=== PATIENT | female | born 1940 | race Asian ===

== ENCOUNTER 2019-10-30 09:56 | Emergency (ER) | payer MEDICARE, MEDICAID, SELFPAY ==
[2019-10-30] VITALS (58 sets, daily range): BP systolic 53–151; BP diastolic 34–88; PULSE 87–137; RESP 19–53; TEMP 37.4–38; O2SAT 71–100
--- NOTE | 2019-10-30 10:07 | DI.RAD.S_ITS ---
PROCEDURE: XR CHEST 1V INDICATIONS: shortness of breath TECHNIQUE: One view of the chest was acquired. COMPARISON: None. FINDINGS: Surgical changes and devices: None. Lungs and pleura: Low lung volumes are noted. This causes a crowded appearance to the lung markings and limits evaluation. Patchy interstitial infiltrates are seen, which are most prominent involving the right mid lung and right lower lung. No pneumothorax or large pleural effusion can be seen. Mediastinum: The cardiac contours are within normal limits. The aorta demonstrates calcification and tortuosity. Bones and chest wall: Age-appropriate bony degenerative changes are seen. No suspicious bony lesions. Overlying soft tissues appear unremarkable. IMPRESSION: Low lung volumes with patchy interstitial infiltrates. Differential diagnosis includes early infiltrate and atelectasis. As clinically appropriate, a short-term followup chest series (with PA and lateral views) performed in deep inspiration is suggested for further evaluation. Dictated by: Cedric Blas M.D. on 10/30/2019 at 10:19 Approved by: Cedric Blas M.D. on 10/30/2019 at 10:21
--- NOTE | 2019-10-30 10:26 | ED.SOB ---
HPI - SOB/Dyspnea <Tristen Cee MD - Last Filed: 11/02/19 07:44> General Chief Complaint: Shortness of Breath/Dyspnea Stated Complaint: fever/cough x3 days Time Seen by Provider: 10/30/19 10:03 History of Present Illness HPI Narrative: CC: Fever, dry unproductive cough for 3 days with shortness of breath HPI: The patient is an 79-year-old female who presents to the emergency department along with her who was also sick with a dry cough for the last 3 days prior to admission associated with fever chills and sweats. She denies any significant chest pain on coughing or deep breathing. She has not had a headache or sore throat. She denies any belly pain chest pain nausea vomiting diarrhea change in bowel habits. The patient has a history of diabetes mellitus and hypertension but no history of congestive heart failure myocardial infarction or COPD. The patient has never smoked cigarettes drinks alcohol occasionally and does not use any drugs including marijuana. She has not had any sore throat nasal congestion sinus congestion. She has not had any significant back pain no belly pain and no urinary symptoms. The patient does not speak Polish and the history is provided by the patient's daughter. On admission the patient was hypoxic with oxygen saturation of 72 which improved to 95% when she was placed on a non-rebreather. She was eventually changed to high-flow nasal cannula. Related Data Allergies Allergy/AdvReac Type Severity Reaction Status Date / Time No Known Drug Allergies Allergy Verified 10/30/19 10:41 Review of Systems <Tristen Cee MD - Last Filed: 11/02/19 07:44> Review of Systems Narrative: The patient's review of systems were all negative except for those mentioned in the history of present illness. Exam <Tristen Cee MD - Last Filed: 11/02/19 07:44> Narrative Exam Narrative: PHYSICAL EXAM: CONSTITUTIONAL: Awake, Alert, Cooperative who is very thin pale appears very quiet and toxic with tachypnea.. HEAD: AT/NC EENT: PERRL, FROM of eyes, no discharge, NOSE:No epistaxis or nasal drainage MOUTH:Oral mucosa is moist and pink, posterior pharynx is without erythema or exudate. NECK: Supple, no obvious JVD, Trachea is midline without stridor, no palpable LN. SPINE: Palpation of the cervical, Thoracic, Lumbar or Sacral spine reveals no gross deformity or tenderness. No CVA tenderness. THORAX: No deformity, retractions, chest wall tenderness. Patient is tachypneic. LUNGS: The patient has markedly decreased breath sounds bilaterally with crackles in both bases posteriorly bilaterally. HEART: The patient has a grade 2/6 systolic murmur along the left sternal border with normal heart tones regular rhythm and tachycardic ABDOMEN: Soft, non-tender, normal bowel sounds without guarding, rebound, rigidity or palpable mass. EXTREMITIES: No edema, deformity, tenderness or cyanosis. SKIN: Pale, No rash, bruising, petechiae or purpura. NEURO: Awake, alert, cranial nerves II-XII are symmetrical , moves all 4 extremities Initial Vital Signs Initial Vital Signs: Vital Signs Temperature 99.3 F 10/30/19 10:41 Pulse Rate 104 H 10/30/19 10:41 Blood Pressure 117/62 10/30/19 10:41 Pulse Oximetry 71 L 10/30/19 10:41 <Jose Alejandro Watts DO - Last Filed: 10/31/19 02:35> Initial Vital Signs Initial Vital Signs: Vital Signs Temperature 99.3 F 10/30/19 10:41 Pulse Rate 104 H 10/30/19 10:41 Blood Pressure 117/62 10/30/19 10:41 Pulse Oximetry 71 L 10/30/19 10:41 Course <Tristen Cee MD - Last Filed: 11/02/19 07:44> Course Course Narrative: 1410: The patient returned from CT scan and remained hypoxic. She was rapid sequence intubated with 10 mg of etomidate followed by 100 mg of succinylcholine followed by intubation without difficulty and good color change on capnometer tree with a 7.5endotracheal tube with 23-24 lip line. Symmetrical breath sounds. A portable chest x-ray will be obtained to check tube placement 1425: I discussed the patient with Dr. Acosta hospitalist on-call who states that the patient is too sick for the ICU here and needs to be transferred to the care of an maintenance controller. Call has been placed in to [facility] to accept transfer. 1436: The patient was bucking the tube despite administering propofol drip and titrating for affect and her blood pressure dropped. The patient was administered 100 mg of fentanyl followed by the initiation of a Versed drip for deep sedation. 1545: The patient's blood pressure dropped and a left subclavian triple lumen central line was started using the Seldinger technique. 2 attempt were necessary with good blood return on the second attempt. Good blood return from all 3 lumens. The catheter was secured in placed and a placement chest x-ray will be ordered. [facility] has not called back and will call [facility] in [place]. The patient has been started on Levophed to support her blood pressure. I discussed the patient's critical grave situation with her sister as well as 1 of her sons. They were made aware of her grave situation and wanted everything done. 1625 the patient's portable chest x-ray did not reveal any evidence of a pneumothorax and a left subclavian catheter appears to be in good position. The patient's chest x-ray looks fluffy as though she may have congestive heart failure and we may have fluid overloaded the patient to resuscitate her blood pressure. And treat her for sepsis. We will administer 1 dose of Lasix 40 mg IV to see if this helps her hypoxia. The patient's has been admitted to the hospitalist service at [facility] in [place], we are waiting for the intensivists Dr. Christiano Gonzalez to call back to accept this patient. 1637: The patient's repeat blood gases on the blood gas report revealed a pH of 7.375 a pCO2 of 32.2 a PO2 of 94 and HC03 of 18.9 a total CO2 of 20 an O2 saturation of 97% on 12 of PEEP. Her sodium was 133 potassium 3.7 hematocrit 25% hemoglobin 8.5. 1653: I discussed the patient with Dr. Christiano Gonzalez at [facility] in [place], he is willing to accept the patient except that if the family wants full court press and everything being done for the patient she may need to be transferred to the [facility] where she can receive ECMO if necessary. If the family is unwilling for her to go to the [facility] and to receive ECMO and understands that she is gravely ill and even with intensive care therapy may end up dying he is willing to accept the patient in transfer. 1659: I tried calling the patient's son Jaret Mcintyre who was not available on his phone and I left him a message that his mother is critically and gravely ill and that I need to discuss a few issues with him in ordered the determine the next step in her care. He was advised that she will need to be transferred to a critical care unit. His phone number is: [phone]. 1710: I explained the critical situation in the gravity of this situation to the patient's son Jaret. He requested that I call his daughter who was taking care of the patient, the patient's granddaughter Timothy Mcintyre at [phone]. 1732 I discussed the patient with her granddaughter iTmothy who became very upset and emotional over the information that I provided. She will discuss the situation with her father and family and decide whether or not they want to transfer the patient to for critical care or be transferred to the intensive care unit at [facility] in [place]. They will call back. 180: I called Timothy Mcintyre the patient's granddaughter who discussed the situation with her parents. They advised to transfer her grandfather to [facility] as previously arranged and to try entrance further grandmother of to If possible they would like them both transferred to . [facility] at the same time. 1844: I discussed the patient and gave report to Maryam the technical training coordinator for . She is working she is working on having the patient transferred to the [facility], ICU. She was informed that the patient may be checked out to Dr. Watts. 1930: I discussed the patient with the [facility] ICU Doctor, Dr. Major who states that the patient will not be admitted to the [facility] ICU unless she has confirmed Covid swab. The patient sounds clinically like she has [place] at but will need to be admitted to the regular intensive care unit placed in isolation until the Covid test results. [facility] will [facility]. 1956: Spoke with Dr. Reginaldo Cerrato the medicine ICU maintenance controller has accepted the patient being transferred. The y will call back with a room. Orders Ordered: Discontinued Medications Etomidate (Amidate) 10 mg IV NOW ONE Stop: 10/30/19 13:39 Last Admin: 10/30/19 14:05 Dose: 10 mg Documented by: SCANAPO Fentanyl (Sublimaze) 100 mcg IV NOW ONE Stop: 10/30/19 14:33 Last Admin: 10/30/19 14:53 Dose: 100 mcg Documented by: SCOTTY Fentanyl (Sublimaze) 100 mcg IV NOW ONE Stop: 10/30/19 15:23 Last Admin: 10/30/19 15:40 Dose: 100 mcg Documented by: SCOTTY Furosemide (Lasix) 40 mg IV NOW ONE Stop: 10/30/19 16:27 Last Admin: 10/30/19 16:45 Dose: 40 mg Documented by: SCOTTY Ceftriaxone Sodium/Dextrose (Rocephin) 1 gm in 50 mls @ 100 mls/hr IV NOW ONE Stop: 10/30/19 10:53 Last Infusion: 10/30/19 12:17 Dose: 0 mls/hr Documented by: Admin: 10/30/19 10:56 Dose: 100 mls/hr Documented by: SCOTTY Azithromycin 500 mg/ Dextrose 250 mls @ 250 mls/hr IV NOW ONE Stop: 10/30/19 10:22 Last Infusion: 10/30/19 12:17 Dose: 0 mls/hr Documented by: Admin: 10/30/19 10:55 Dose: 250 mls/hr Documented by: SCOTTY Sodium Chloride (Normal Saline 0.9%) 1,000 mls @ 2,000 mls/hr IV BOLUS ONE Stop: 10/30/19 10:54 Last Infusion: 10/30/19 12:18 Dose: 0 mls/hr Documented by: Admin: 10/30/19 10:55 Dose: 2,000 mls/hr Documented by: STEPHANIEAPChele Sodium Chloride (Normal Saline 0.9%) 1,000 mls @ 1,000 mls/hr IV BOLUS ONE Stop: 10/30/19 14:26 Last Infusion: 10/30/19 16:45 Dose: 0 mls/hr Documented by: Admin: 10/30/19 13:41 Dose: 1,000 mls/hr Documented by: LILIANA Propofol (Propofol) 1,000 mg in 100 mls @ 1.587 mls/hr IV TITRATE JAMARCUS; Protocol Last Titration: 10/30/19 14:30 Dose: 0 mcg/kg/min, 0 mls/hr Documented by: Admin: 10/30/19 14:15 Dose: 5 mcg/kg/min, 1.587 mls/hr Documented by: SCANAPO Midazolam HCl 50 mg/ Dextrose 260 mls @ 5.502 mls/hr IV TITRATE JAMARCUS; Protocol Last Titration: 10/30/19 22:18 Dose: 0 mg/kg/hr, 0 mls/hr Documented by: Titration: 10/30/19 20:56 Dose: 0.04 mg/kg/hr, 11 mls/hr Documented by: Admin: 10/30/19 15:34 Dose: 0.02 mg/kg/hr, 5.502 mls/hr Documented by: SCANAPO Vecuronium Rocheport 20 mg/ (Sodium Chloride) 100 mls @ 12.696 mls/hr IV TITRATE JAMARCUS; Protocol Last Titration: 10/30/19 22:19 Dose: 0 mcg/kg/min, 0 mls/hr Documented by: Titration: 10/30/19 20:57 Dose: 0.8 mcg/kg/min, 12.7 mls/hr Documented by: Admin: 10/30/19 15:34 Dose: 0.8 mcg/kg/min, 12.696 mls/hr Documented by: SCANAPO Norepinephrine Bitartrate 4 mg (/ Dextrose) 254 mls @ 30.48 mls/hr IV TITRATE JAMARCUS; Protocol Last Titration: 10/30/19 22:19 Dose: 0 mcg/min, 0 mls/hr Documented by: Titration: 10/30/19 21:08 Dose: 4 mcg/min, 15.24 mls/hr Documented by: Titration: 10/30/19 20:57 Dose: 3 mcg/min, 11.43 mls/hr Documented by: Titration: 10/30/19 16:46 Dose: 5 mcg/min, 19.05 mls/hr Documented by: Admin: 10/30/19 15:44 Dose: 8 mcg/min, 30.48 mls/hr Documented by: SCANAPO Sodium Chloride (Normal Saline 0.9%) 1,000 mls @ 100 mls/hr IV CONT JAMARCUS Last Infusion: 10/30/19 22:20 Dose: 0 mls/hr Documented by: Admin: 10/30/19 16:49 Dose: 100 mls/hr Documented by: SCOTTY Succinylcholine Chloride (Quelicin) 100 mg IV NOW ONE Stop: 10/30/19 13:43 Last Admin: 10/30/19 14:06 Dose: 100 mg Documented by: SCOTTY Vital Signs Vital signs: Vital Signs - 8 hr 10/30/19 18:35 10/30/19 19:00 10/30/19 19:15 Temperature 99.7 F H Pulse Rate 106 H 123 H 124 H Respiratory Rate 20 20 20 Blood Pressure [Right Arm] 114/64 128/71 141/75 H Pulse Oximetry 96 97 97 10/30/19 20:20 10/30/19 20:58 10/30/19 21:07 Temperature Pulse Rate 125 H 111 H 108 H Respiratory Rate 20 20 20 Blood Pressure [Right Arm] 124/88 106/52 L 100/55 L Pulse Oximetry 97 100 100 10/30/19 21:30 10/30/19 21:39 Temperature 100.4 F H Pulse Rate 109 H Respiratory Rate 20 Blood Pressure [Right Arm] 112/59 L Pulse Oximetry 100 <Jose Alejandro Watts, - Last Filed: 10/31/19 02:35> Course Course Narrative: patient in process of signing out to me when [facility] called back. I had no interaction with this patient Orders Ordered: Discontinued Medications Etomidate (Amidate) 10 mg IV NOW ONE Stop: 10/30/19 13:39 Last Admin: 10/30/19 14:05 Dose: 10 mg Documented by: SCOTTY Fentanyl (Sublimaze) 100 mcg IV NOW ONE Stop: 10/30/19 14:33 Last Admin: 10/30/19 14:53 Dose: 100 mcg Documented by: SCOTTY Fentanyl (Sublimaze) 100 mcg IV NOW ONE Stop: 10/30/19 15:23 Last Admin: 10/30/19 15:40 Dose: 100 mcg Documented by: SCOTTY Furosemide (Lasix) 40 mg IV NOW ONE Stop: 10/30/19 16:27 Last Admin: 10/30/19 16:45 Dose: 40 mg Documented by: SCOTTY Ceftriaxone Sodium/Dextrose (Rocephin) 1 gm in 50 mls @ 100 mls/hr IV NOW ONE Stop: 10/30/19 10:53 Last Infusion: 10/30/19 12:17 Dose: 0 mls/hr Documented by: Admin: 10/30/19 10:56 Dose: 100 mls/hr Documented by: DEONO Azithromycin 500 mg/ Dextrose 250 mls @ 250 mls/hr IV NOW ONE Stop: 10/30/19 10:22 Last Infusion: 10/30/19 12:17 Dose: 0 mls/hr Documented by: Admin: 10/30/19 10:55 Dose: 250 mls/hr Documented by: STEPHANIEAPO Sodium Chloride (Normal Saline 0.9%) 1,000 mls @ 2,000 mls/hr IV BOLUS ONE Stop: 10/30/19 10:54 Last Infusion: 10/30/19 12:18 Dose: 0 mls/hr Documented by: Admin: 10/30/19 10:55 Dose: 2,000 mls/hr Documented by: SCANAPO Sodium Chloride (Normal Saline 0.9%) 1,000 mls @ 1,000 mls/hr IV BOLUS ONE Stop: 10/30/19 14:26 Last Infusion: 10/30/19 16:45 Dose: 0 mls/hr Documented by: Admin: 10/30/19 13:41 Dose: 1,000 mls/hr Documented by: LILIANA Propofol (Propofol) 1,000 mg in 100 mls @ 1.587 mls/hr IV TITRATE JAMARCUS; Protocol Last Titration: 10/30/19 14:30 Dose: 0 mcg/kg/min, 0 mls/hr Documented by: Admin: 10/30/19 14:15 Dose: 5 mcg/kg/min, 1.587 mls/hr Documented by: SCOTTY Midazolam HCl 50 mg/ Dextrose 260 mls @ 5.502 mls/hr IV TITRATE JAMARCUS; Protocol Last Titration: 10/30/19 22:18 Dose: 0 mg/kg/hr, 0 mls/hr Documented by: Titration: 10/30/19 20:56 Dose: 0.04 mg/kg/hr, 11 mls/hr Documented by: Admin: 10/30/19 15:34 Dose: 0.02 mg/kg/hr, 5.502 mls/hr Documented by: SCOTTY Vecuronium Rocheport 20 mg/ (Sodium Chloride) 100 mls @ 12.696 mls/hr IV TITRATE JAMARCUS; Protocol Last Titration: 10/30/19 22:19 Dose: 0 mcg/kg/min, 0 mls/hr Documented by: Titration: 10/30/19 20:57 Dose: 0.8 mcg/kg/min, 12.7 mls/hr Documented by: Admin: 10/30/19 15:34 Dose: 0.8 mcg/kg/min, 12.696 mls/hr Documented by: SCOTTY Norepinephrine Bitartrate 4 mg (/ Dextrose) 254 mls @ 30.48 mls/hr IV TITRATE JAMARCUS; Protocol Last Titration: 10/30/19 22:19 Dose: 0 mcg/min, 0 mls/hr Documented by: Titration: 10/30/19 21:08 Dose: 4 mcg/min, 15.24 mls/hr Documented by: Titration: 10/30/19 20:57 Dose: 3 mcg/min, 11.43 mls/hr Documented by: Titration: 10/30/19 16:46 Dose: 5 mcg/min, 19.05 mls/hr Documented by: Admin: 10/30/19 15:44 Dose: 8 mcg/min, 30.48 mls/hr Documented by: SCANERNESTO Sodium Chloride (Normal Saline 0.9%) 1,000 mls @ 100 mls/hr IV CONT JAMARCUS Last Infusion: 10/30/19 22:20 Dose: 0 mls/hr Documented by: Admin: 10/30/19 16:49 Dose: 100 mls/hr Documented by: SCOTTY Succinylcholine Chloride (Quelicin) 100 mg IV NOW ONE Stop: 10/30/19 13:43 Last Admin: 10/30/19 14:06 Dose: 100 mg Documented by: SCOTTY Vital Signs Vital signs: Vital Signs - 8 hr 10/30/19 18:35 10/30/19 19:00 10/30/19 19:15 Temperature 99.7 F H Pulse Rate 106 H 123 H 124 H Respiratory Rate 20 20 20 Blood Pressure [Right Arm] 114/64 128/71 141/75 H Pulse Oximetry 96 97 97 10/30/19 20:20 10/30/19 20:58 10/30/19 21:07 Temperature Pulse Rate 125 H 111 H 108 H Respiratory Rate 20 20 20 Blood Pressure [Right Arm] 124/88 106/52 L 100/55 L Pulse Oximetry 97 100 100 10/30/19 21:30 10/30/19 21:39 Temperature 100.4 F H Pulse Rate 109 H Respiratory Rate 20 Blood Pressure [Right Arm] 112/59 L Pulse Oximetry 100 MDM - SOB/Dyspnea <Tristen Cee MD - Last Filed: 11/02/19 07:44> Medical Records Attestation: I reviewed the patient's medical records. Lab Data Attestation: I reviewed the patient's lab results. Result diagrams: 10/30/19 10:45 10/30/19 10:45 Labs: Lab Results 10/30/19 10/30/19 10/30/19 Range/Units 10:45 10:45 10:45 WBC 14.2 H (4.5-11.0) X10^3/uL RBC 3.59 L (4.0-5.2) X10^6/uL Hgb 10.2 L (12.0-16.0) g/dL Hct 29.6 L (36-46) % MCV 82.6 (80-100) fL MCH 28.3 (26-34) PG MCHC 34.3 (30-36) % RDW 13.5 (11.6-14.8) % Plt Count 277 (150-400) X10^3/uL Neut % (Auto) 97.2 H (50-75) % Lymph % (Auto) 1.4 L (25-40) % Edgar % (Auto) 1.3 L (3-14) % Eos % (Auto) 0.0 L (2-4) % Baso % (Auto) 0.1 (0-2) % Neut # (Auto) 24414 H (2237-2835) /uL Lymph # (Auto) 200 L (3592-7644) /uL Edgar # (Auto) 200 (0-900) /uL Eos # (Auto) 0 (0-450) /uL Baso # (Auto) 0 (0-100) /uL ESR (0-20) MM/HR D-Dimer (<230) ng/mL ABG pH (7.35-7.45) ABG pCO2 (35-45) mmHg ABG pO2 (80-100) mmHg ABG HCO3 (22-26) mmol/L ABG Total CO2 (21-31) mmol/L ABG O2 Saturation (95-100) % ABG Base Excess (-2-2) mmol/L FiO2 Sodium 125 L (137-145) mmol/L Potassium 4.2 (3.4-5.1) mmol/L Chloride 92 L (98-107) mmol/L Carbon Dioxide 21 L (22-32) mmol/L BUN 12 (7-17) mg/dL Creatinine 0.80 (0.52-1.04) mg/dL Estimated GFR > 60.0 (>60) mL/min BUN/Creatinine Ratio 15.0 (6-22) Glucose 255 H (80-110) mg/dL Lactate 1.4 (0.7-2.1) mmol/L Calcium 8.9 (8.4-10.2) mg/dL Total Bilirubin 0.6 (0.2-1.3) mg/dL AST 55 H (14-36) IU/L ALT 22 (<35) IU/L Alkaline Phosphatase 81 (38-126) U/L Lactate Dehydrogenase (313-618) U/L Total Creatine Kinase (30-135) U/L CK-MB (CK-2) CK-MB (CK-2) Rel Index Troponin I (0.01-0.034) ng/mL C-Reactive Protein (<1.0) mg/dL NT-Pro-B Natriuret Pep (<450) pg/mL Total Protein 7.7 (6.3-8.2) g/dL Albumin 4.0 (3.5-5.0) g/dL Globulin 3.7 (1.7-4.1) g/dL Albumin/Globulin Ratio 1.1 (1.0-2.8) Procalcitonin (<0.5) ng/mL Urine Color Urine Appearance Urine pH (4.5-8.0) Ur Specific [place] (1.000-1.035) Urine Protein (Negative) Urine Glucose (UA) (Negative) g/dL Urine Ketones (NEGATIVE) Urine Occult Blood (Negative) Urine Nitrate (Negative) Urine Bilirubin (NEGATIVE) Urine Urobilinogen (0.2) E.U./dL Ur Leukocyte Esterase (NEGATIVE) Urine RBC (0-5/HPF) Urine WBC (0-5/HPF) Ur Squamous Epith Cells (0-5/HPF) Ur Transition Epith Cell (0-5/HPF) Urine Bacteria (None) Ur Culture Indicated? Chlamy pneumoniae PCR (Not Detect) Adenovirus (PCR) (Not Detect) B.parapertussis DNA PCR (Not Detect) Coronavirus OC43 (PCR) (Not Detect) Coronavirus HKU1 (PCR) (Not Detect) Coronavirus 229E (PCR) (Not Detect) COVID-19 PCR (Not Detect) Coronavirus NL63 (PCR) (Not Detect) Human Metapneumovir PCR (Not Detect) Influenza Type A (PCR) (Not Detect) Influenza Type B (PCR) (Not Detect) M. pneumoniae (PCR) (Not Detect) Parainfluenza 1 (PCR) (Not Detect) Parainfluenza 2 (PCR) (Not Detect) Parainfluenza 3 (PCR) (Not Detect) Parainfluenza 4 (PCR) (Not Detect) RSV (PCR) (Not Detect) Entero/Rhino (PCR) (Not Detect) 10/30/19 10/30/19 10/30/19 Range/Units 10:45 10:45 10:45 WBC (4.5-11.0) X10^3/uL RBC (4.0-5.2) X10^6/uL Hgb (12.0-16.0) g/dL Hct (36-46) % MCV (80-100) fL MCH (26-34) PG MCHC (30-36) % RDW (11.6-14.8) % Plt Count (150-400) X10^3/uL Neut % (Auto) (50-75) % Lymph % (Auto) (25-40) % Edgar % (Auto) (3-14) % Eos % (Auto) (2-4) % Baso % (Auto) (0-2) % Neut # (Auto) (6611-4687) /uL Lymph # (Auto) (2720-1972) /uL Edgar # (Auto) (0-900) /uL Eos # (Auto) (0-450) /uL Baso # (Auto) (0-100) /uL ESR 106 H (0-20) MM/HR D-Dimer 998 H (<230) ng/mL ABG pH (7.35-7.45) ABG pCO2 (35-45) mmHg ABG pO2 (80-100) mmHg ABG HCO3 (22-26) mmol/L ABG Total CO2 (21-31) mmol/L ABG O2 Saturation (95-100) % ABG Base Excess (-2-2) mmol/L FiO2 Sodium (137-145) mmol/L Potassium (3.4-5.1) mmol/L Chloride (98-107) mmol/L Carbon Dioxide (22-32) mmol/L BUN (7-17) mg/dL Creatinine (0.52-1.04) mg/dL Estimated GFR (>60) mL/min BUN/Creatinine Ratio (6-22) Glucose (80-110) mg/dL Lactate (0.7-2.1) mmol/L Calcium (8.4-10.2) mg/dL Total Bilirubin (0.2-1.3) mg/dL AST (14-36) IU/L ALT (<35) IU/L Alkaline Phosphatase (38-126) U/L Lactate Dehydrogenase (313-618) U/L Total Creatine Kinase (30-135) U/L CK-MB (CK-2) CK-MB (CK-2) Rel Index Troponin I (0.01-0.034) ng/mL C-Reactive Protein (<1.0) mg/dL NT-Pro-B Natriuret Pep (<450) pg/mL Total Protein (6.3-8.2) g/dL Albumin (3.5-5.0) g/dL Globulin (1.7-4.1) g/dL Albumin/Globulin Ratio (1.0-2.8) Procalcitonin 0.19 (<0.5) ng/mL Urine Color Urine Appearance Urine pH (4.5-8.0) Ur Specific [place] (1.000-1.035) Urine Protein (Negative) Urine Glucose (UA) (Negative) g/dL Urine Ketones (NEGATIVE) Urine Occult Blood (Negative) Urine Nitrate (Negative) Urine Bilirubin (NEGATIVE) Urine Urobilinogen (0.2) E.U./dL Ur Leukocyte Esterase (NEGATIVE) Urine RBC (0-5/HPF) Urine WBC (0-5/HPF) Ur Squamous Epith Cells (0-5/HPF) Ur Transition Epith Cell (0-5/HPF) Urine Bacteria (None) Ur Culture Indicated? Chlamy pneumoniae PCR (Not Detect) Adenovirus (PCR) (Not Detect) B.parapertussis DNA PCR (Not Detect) Coronavirus OC43 (PCR) (Not Detect) Coronavirus HKU1 (PCR) (Not Detect) Coronavirus 229E (PCR) (Not Detect) COVID-19 PCR (Not Detect) Coronavirus NL63 (PCR) (Not Detect) Human Metapneumovir PCR (Not Detect) Influenza Type A (PCR) (Not Detect) Influenza Type B (PCR) (Not Detect) M. pneumoniae (PCR) (Not Detect) Parainfluenza 1 (PCR) (Not Detect) Parainfluenza 2 (PCR) (Not Detect) Parainfluenza 3 (PCR) (Not Detect) Parainfluenza 4 (PCR) (Not Detect) RSV (PCR) (Not Detect) Entero/Rhino (PCR) (Not Detect) 10/30/19 10/30/19 10/30/19 Range/Units 10:45 10:45 11:10 WBC (4.5-11.0) X10^3/uL RBC (4.0-5.2) X10^6/uL Hgb (12.0-16.0) g/dL Hct (36-46) % MCV (80-100) fL MCH (26-34) PG MCHC (30-36) % RDW (11.6-14.8) % Plt Count (150-400) X10^3/uL Neut % (Auto) (50-75) % Lymph % (Auto) (25-40) % Edgar % (Auto) (3-14) % Eos % (Auto) (2-4) % Baso % (Auto) (0-2) % Neut # (Auto) (3617-6135) /uL Lymph # (Auto) (5300-9479) /uL Edgar # (Auto) (0-900) /uL Eos # (Auto) (0-450) /uL Baso # (Auto) (0-100) /uL ESR (0-20) MM/HR D-Dimer (<230) ng/mL ABG pH (7.35-7.45) ABG pCO2 (35-45) mmHg ABG pO2 (80-100) mmHg ABG HCO3 (22-26) mmol/L ABG Total CO2 (21-31) mmol/L ABG O2 Saturation (95-100) % ABG Base Excess (-2-2) mmol/L FiO2 Sodium (137-145) mmol/L Potassium (3.4-5.1) mmol/L Chloride (98-107) mmol/L Carbon Dioxide (22-32) mmol/L BUN (7-17) mg/dL Creatinine (0.52-1.04) mg/dL Estimated GFR (>60) mL/min BUN/Creatinine Ratio (6-22) Glucose (80-110) mg/dL Lactate (0.7-2.1) mmol/L Calcium (8.4-10.2) mg/dL Total Bilirubin (0.2-1.3) mg/dL AST (14-36) IU/L ALT (<35) IU/L Alkaline Phosphatase (38-126) U/L Lactate Dehydrogenase 983 H (313-618) U/L Total Creatine Kinase 90 (30-135) U/L CK-MB (CK-2) TNP CK-MB (CK-2) Rel Index TNP Troponin I < 0.012 (0.01-0.034) ng/mL C-Reactive Protein 13.8 H (<1.0) mg/dL NT-Pro-B Natriuret Pep 1030 H (<450) pg/mL Total Protein (6.3-8.2) g/dL Albumin (3.5-5.0) g/dL Globulin (1.7-4.1) g/dL Albumin/Globulin Ratio (1.0-2.8) Procalcitonin (<0.5) ng/mL Urine Color Yellow Urine Appearance Clear Urine pH 7.0 (4.5-8.0) Ur Specific [place] <=1.005 (1.000-1.035) Urine Protein Negative (Negative) Urine Glucose (UA) 2+ H (Negative) g/dL Urine Ketones Trace H (NEGATIVE) Urine Occult Blood Negative (Negative) Urine Nitrate Negative (Negative) Urine Bilirubin Negative (NEGATIVE) Urine Urobilinogen 0.2 (0.2) E.U./dL Ur Leukocyte Esterase Negative (NEGATIVE) Urine RBC None seen (0-5/HPF) Urine WBC None seen (0-5/HPF) Ur Squamous Epith Cells 0-1 /hpf (0-5/HPF) Ur Transition Epith Cell 0-1/hpf (0-5/HPF) Urine Bacteria None seen (None) Ur Culture Indicated? Cult not indicated Chlamy pneumoniae PCR (Not Detect) Adenovirus (PCR) (Not Detect) B.parapertussis DNA PCR (Not Detect) Coronavirus OC43 (PCR) (Not Detect) Coronavirus HKU1 (PCR) (Not Detect) Coronavirus 229E (PCR) (Not Detect) COVID-19 PCR (Not Detect) Coronavirus NL63 (PCR) (Not Detect) Human Metapneumovir PCR (Not Detect) Influenza Type A (PCR) (Not Detect) Influenza Type B (PCR) (Not Detect) M. pneumoniae (PCR) (Not Detect) Parainfluenza 1 (PCR) (Not Detect) Parainfluenza 2 (PCR) (Not Detect) Parainfluenza 3 (PCR) (Not Detect) Parainfluenza 4 (PCR) (Not Detect) RSV (PCR) (Not Detect) Entero/Rhino (PCR) (Not Detect) 10/30/19 10/30/19 10/30/19 Range/Units 11:27 12:10 12:10 WBC (4.5-11.0) X10^3/uL RBC (4.0-5.2) X10^6/uL Hgb (12.0-16.0) g/dL Hct (36-46) % MCV (80-100) fL MCH (26-34) PG MCHC (30-36) % RDW (11.6-14.8) % Plt Count (150-400) X10^3/uL Neut % (Auto) (50-75) % Lymph % (Auto) (25-40) % Edgar % (Auto) (3-14) % Eos % (Auto) (2-4) % Baso % (Auto) (0-2) % Neut # (Auto) (8801-3091) /uL Lymph # (Auto) (5607-8945) /uL Edgar # (Auto) (0-900) /uL Eos # (Auto) (0-450) /uL Baso # (Auto) (0-100) /uL ESR (0-20) MM/HR D-Dimer (<230) ng/mL ABG pH 7.48 H (7.35-7.45) ABG pCO2 25.9 L (35-45) mmHg ABG pO2 67 L (80-100) mmHg ABG HCO3 19 L (22-26) mmol/L ABG Total CO2 20 L (21-31) mmol/L ABG O2 Saturation 95 (95-100) % ABG Base Excess -4.0 L (-2-2) mmol/L FiO2 65 Sodium (137-145) mmol/L Potassium (3.4-5.1) mmol/L Chloride (98-107) mmol/L Carbon Dioxide (22-32) mmol/L BUN (7-17) mg/dL Creatinine (0.52-1.04) mg/dL Estimated GFR (>60) mL/min BUN/Creatinine Ratio (6-22) Glucose (80-110) mg/dL Lactate (0.7-2.1) mmol/L Calcium (8.4-10.2) mg/dL Total Bilirubin (0.2-1.3) mg/dL AST (14-36) IU/L ALT (<35) IU/L Alkaline Phosphatase (38-126) U/L Lactate Dehydrogenase (313-618) U/L Total Creatine Kinase (30-135) U/L CK-MB (CK-2) CK-MB (CK-2) Rel Index Troponin I (0.01-0.034) ng/mL C-Reactive Protein (<1.0) mg/dL NT-Pro-B Natriuret Pep (<450) pg/mL Total Protein (6.3-8.2) g/dL Albumin (3.5-5.0) g/dL Globulin (1.7-4.1) g/dL Albumin/Globulin Ratio (1.0-2.8) Procalcitonin (<0.5) ng/mL Urine Color Urine Appearance Urine pH (4.5-8.0) Ur Specific [place] (1.000-1.035) Urine Protein (Negative) Urine Glucose (UA) (Negative) g/dL Urine Ketones (NEGATIVE) Urine Occult Blood (Negative) Urine Nitrate (Negative) Urine Bilirubin (NEGATIVE) Urine Urobilinogen (0.2) E.U./dL Ur Leukocyte Esterase (NEGATIVE) Urine RBC (0-5/HPF) Urine WBC (0-5/HPF) Ur Squamous Epith Cells (0-5/HPF) Ur Transition Epith Cell (0-5/HPF) Urine Bacteria (None) Ur Culture Indicated? Chlamy pneumoniae PCR Not detected (Not Detect) Adenovirus (PCR) Not detected (Not Detect) B.parapertussis DNA PCR Not detected (Not Detect) Coronavirus OC43 (PCR) Not detected (Not Detect) Coronavirus HKU1 (PCR) Not detected (Not Detect) Coronavirus 229E (PCR) Not detected (Not Detect) COVID-19 PCR Positive A (Not Detect) Coronavirus NL63 (PCR) Not detected (Not Detect) Human Metapneumovir PCR Not detected (Not Detect) Influenza Type A (PCR) Not detected (Not Detect) Influenza Type B (PCR) Not detected (Not Detect) M. pneumoniae (PCR) Not detected (Not Detect) Parainfluenza 1 (PCR) Not detected (Not Detect) Parainfluenza 2 (PCR) Not detected (Not Detect) Parainfluenza 3 (PCR) Not detected (Not Detect) Parainfluenza 4 (PCR) Not detected (Not Detect) RSV (PCR) Not detected (Not Detect) Entero/Rhino (PCR) Not detected (Not Detect) 10/30/19 10/30/19 Range/Units 14:42 16:24 WBC (4.5-11.0) X10^3/uL RBC (4.0-5.2) X10^6/uL Hgb (12.0-16.0) g/dL Hct (36-46) % MCV (80-100) fL MCH (26-34) PG MCHC (30-36) % RDW (11.6-14.8) % Plt Count (150-400) X10^3/uL Neut % (Auto) (50-75) % Lymph % (Auto) (25-40) % Edgar % (Auto) (3-14) % Eos % (Auto) (2-4) % Baso % (Auto) (0-2) % Neut # (Auto) (2242-5970) /uL Lymph # (Auto) (3821-0447) /uL Edgar # (Auto) (0-900) /uL Eos # (Auto) (0-450) /uL Baso # (Auto) (0-100) /uL ESR (0-20) MM/HR D-Dimer (<230) ng/mL ABG pH 7.34 L 7.38 (7.35-7.45) ABG pCO2 32.2 L 32.2 L (35-45) mmHg ABG pO2 47 L* 94 (80-100) mmHg ABG HCO3 17 L 19 L (22-26) mmol/L ABG Total CO2 18 L 20 L (21-31) mmol/L ABG O2 Saturation 81 L* 97 (95-100) % ABG Base Excess -8.0 L -6.0 L (-2-2) mmol/L FiO2 100 100 Sodium (137-145) mmol/L Potassium (3.4-5.1) mmol/L Chloride (98-107) mmol/L Carbon Dioxide (22-32) mmol/L BUN (7-17) mg/dL Creatinine (0.52-1.04) mg/dL Estimated GFR (>60) mL/min BUN/Creatinine Ratio (6-22) Glucose (80-110) mg/dL Lactate (0.7-2.1) mmol/L Calcium (8.4-10.2) mg/dL Total Bilirubin (0.2-1.3) mg/dL AST (14-36) IU/L ALT (<35) IU/L Alkaline Phosphatase (38-126) U/L Lactate Dehydrogenase (313-618) U/L Total Creatine Kinase (30-135) U/L CK-MB (CK-2) CK-MB (CK-2) Rel Index Troponin I (0.01-0.034) ng/mL C-Reactive Protein (<1.0) mg/dL NT-Pro-B Natriuret Pep (<450) pg/mL Total Protein (6.3-8.2) g/dL Albumin (3.5-5.0) g/dL Globulin (1.7-4.1) g/dL Albumin/Globulin Ratio (1.0-2.8) Procalcitonin (<0.5) ng/mL Urine Color Urine Appearance Urine pH (4.5-8.0) Ur Specific [place] (1.000-1.035) Urine Protein (Negative) Urine Glucose (UA) (Negative) g/dL Urine Ketones (NEGATIVE) Urine Occult Blood (Negative) Urine Nitrate (Negative) Urine Bilirubin (NEGATIVE) Urine Urobilinogen (0.2) E.U./dL Ur Leukocyte Esterase (NEGATIVE) Urine RBC (0-5/HPF) Urine WBC (0-5/HPF) Ur Squamous Epith Cells (0-5/HPF) Ur Transition Epith Cell (0-5/HPF) Urine Bacteria (None) Ur Culture Indicated? Chlamy pneumoniae PCR (Not Detect) Adenovirus (PCR) (Not Detect) B.parapertussis DNA PCR (Not Detect) Coronavirus OC43 (PCR) (Not Detect) Coronavirus HKU1 (PCR) (Not Detect) Coronavirus 229E (PCR) (Not Detect) COVID-19 PCR (Not Detect) Coronavirus NL63 (PCR) (Not Detect) Human Metapneumovir PCR (Not Detect) Influenza Type A (PCR) (Not Detect) Influenza Type B (PCR) (Not Detect) M. pneumoniae (PCR) (Not Detect) Parainfluenza 1 (PCR) (Not Detect) Parainfluenza 2 (PCR) (Not Detect) Parainfluenza 3 (PCR) (Not Detect) Parainfluenza 4 (PCR) (Not Detect) RSV (PCR) (Not Detect) Entero/Rhino (PCR) (Not Detect) 1145: On a high-flow nasal cannula at 15 liters/minutes and approximately 65% FiO2 the patient's pH is 7.476 pCO2 is 25.9 PO2 is 67 and O2 saturation is 95%. The patient has a mild respiratory alkalosis her bicarb is 19.1 total CO2 is 20 hemoglobin is 9.5 hematocrit is 28. On the blood gas slip. ECG Data Attestation: I personally reviewed and interpreted this ECG as follows: Interpretation: The patient's EKG obtained at October 29 at 10:16 a.m.: Reveals a sinus tachycardia with a ventricular rate of 110. Intervals are normal QTC is slightly prolonged at 452 milliseconds axis is normal. The patient has flat to slightly inverted T-waves in leads III without any other acute diagnostic ST segment changes noted. There is no EKG changes to suggest an injury, infarct or ischemia. <Jose Alejandro Watts, DO - Last Filed: 10/31/19 02:35> Lab Data Labs: Lab Results 10/30/19 10/30/19 10/30/19 Range/Units 10:45 10:45 10:45 WBC 14.2 H (4.5-11.0) X10^3/uL RBC 3.59 L (4.0-5.2) X10^6/uL Hgb 10.2 L (12.0-16.0) g/dL Hct 29.6 L (36-46) % MCV 82.6 (80-100) fL MCH 28.3 (26-34) PG MCHC 34.3 (30-36) % RDW 13.5 (11.6-14.8) % Plt Count 277 (150-400) X10^3/uL Neut % (Auto) 97.2 H (50-75) % Lymph % (Auto) 1.4 L (25-40) % Edgar % (Auto) 1.3 L (3-14) % Eos % (Auto) 0.0 L (2-4) % Baso % (Auto) 0.1 (0-2) % Neut # (Auto) 81850 H (9914-4854) /uL Lymph # (Auto) 200 L (8708-4881) /uL Edgar # (Auto) 200 (0-900) /uL Eos # (Auto) 0 (0-450) /uL Baso # (Auto) 0 (0-100) /uL ESR (0-20) MM/HR D-Dimer (<230) ng/mL ABG pH (7.35-7.45) ABG pCO2 (35-45) mmHg ABG pO2 (80-100) mmHg ABG HCO3 (22-26) mmol/L ABG Total CO2 (21-31) mmol/L ABG O2 Saturation (95-100) % ABG Base Excess (-2-2) mmol/L FiO2 Sodium 125 L (137-145) mmol/L Potassium 4.2 (3.4-5.1) mmol/L Chloride 92 L (98-107) mmol/L Carbon Dioxide 21 L (22-32) mmol/L BUN 12 (7-17) mg/dL Creatinine 0.80 (0.52-1.04) mg/dL Estimated GFR > 60.0 (>60) mL/min BUN/Creatinine Ratio 15.0 (6-22) Glucose 255 H (80-110) mg/dL Lactate 1.4 (0.7-2.1) mmol/L Calcium 8.9 (8.4-10.2) mg/dL Total Bilirubin 0.6 (0.2-1.3) mg/dL AST 55 H (14-36) IU/L ALT 22 (<35) IU/L Alkaline Phosphatase 81 (38-126) U/L Lactate Dehydrogenase (313-618) U/L Total Creatine Kinase (30-135) U/L CK-MB (CK-2) CK-MB (CK-2) Rel Index Troponin I (0.01-0.034) ng/mL C-Reactive Protein (<1.0) mg/dL NT-Pro-B Natriuret Pep (<450) pg/mL Total Protein 7.7 (6.3-8.2) g/dL Albumin 4.0 (3.5-5.0) g/dL Globulin 3.7 (1.7-4.1) g/dL Albumin/Globulin Ratio 1.1 (1.0-2.8) Procalcitonin (<0.5) ng/mL Urine Color Urine Appearance Urine pH (4.5-8.0) Ur Specific [place] (1.000-1.035) Urine Protein (Negative) Urine Glucose (UA) (Negative) g/dL Urine Ketones (NEGATIVE) Urine Occult Blood (Negative) Urine Nitrate (Negative) Urine Bilirubin (NEGATIVE) Urine Urobilinogen (0.2) E.U./dL Ur Leukocyte Esterase (NEGATIVE) Urine RBC (0-5/HPF) Urine WBC (0-5/HPF) Ur Squamous Epith Cells (0-5/HPF) Ur Transition Epith Cell (0-5/HPF) Urine Bacteria (None) Ur Culture Indicated? Chlamy pneumoniae PCR (Not Detect) Adenovirus (PCR) (Not Detect) B.parapertussis DNA PCR (Not Detect) Coronavirus OC43 (PCR) (Not Detect) Coronavirus HKU1 (PCR) (Not Detect) Coronavirus 229E (PCR) (Not Detect) COVID-19 PCR (Not Detect) Coronavirus NL63 (PCR) (Not Detect) Human Metapneumovir PCR (Not Detect) Influenza Type A (PCR) (Not Detect) Influenza Type B (PCR) (Not Detect) M. pneumoniae (PCR) (Not Detect) Parainfluenza 1 (PCR) (Not Detect) Parainfluenza 2 (PCR) (Not Detect) Parainfluenza 3 (PCR) (Not Detect) Parainfluenza 4 (PCR) (Not Detect) RSV (PCR) (Not Detect) Entero/Rhino (PCR) (Not Detect) 10/30/19 10/30/19 10/30/19 Range/Units 10:45 10:45 10:45 WBC (4.5-11.0) X10^3/uL RBC (4.0-5.2) X10^6/uL Hgb (12.0-16.0) g/dL Hct (36-46) % MCV (80-100) fL MCH (26-34) PG MCHC (30-36) % RDW (11.6-14.8) % Plt Count (150-400) X10^3/uL Neut % (Auto) (50-75) % Lymph % (Auto) (25-40) % Edgar % (Auto) (3-14) % Eos % (Auto) (2-4) % Baso % (Auto) (0-2) % Neut # (Auto) (0447-0182) /uL Lymph # (Auto) (1855-7942) /uL Edgar # (Auto) (0-900) /uL Eos # (Auto) (0-450) /uL Baso # (Auto) (0-100) /uL ESR 106 H (0-20) MM/HR D-Dimer 998 H (<230) ng/mL ABG pH (7.35-7.45) ABG pCO2 (35-45) mmHg ABG pO2 (80-100) mmHg ABG HCO3 (22-26) mmol/L ABG Total CO2 (21-31) mmol/L ABG O2 Saturation (95-100) % ABG Base Excess (-2-2) mmol/L FiO2 Sodium (137-145) mmol/L Potassium (3.4-5.1) mmol/L Chloride (98-107) mmol/L Carbon Dioxide (22-32) mmol/L BUN (7-17) mg/dL Creatinine (0.52-1.04) mg/dL Estimated GFR (>60) mL/min BUN/Creatinine Ratio (6-22) Glucose (80-110) mg/dL Lactate (0.7-2.1) mmol/L Calcium (8.4-10.2) mg/dL Total Bilirubin (0.2-1.3) mg/dL AST (14-36) IU/L ALT (<35) IU/L Alkaline Phosphatase (38-126) U/L Lactate Dehydrogenase (313-618) U/L Total Creatine Kinase (30-135) U/L CK-MB (CK-2) CK-MB (CK-2) Rel Index Troponin I (0.01-0.034) ng/mL C-Reactive Protein (<1.0) mg/dL NT-Pro-B Natriuret Pep (<450) pg/mL Total Protein (6.3-8.2) g/dL Albumin (3.5-5.0) g/dL Globulin (1.7-4.1) g/dL Albumin/Globulin Ratio (1.0-2.8) Procalcitonin 0.19 (<0.5) ng/mL Urine Color Urine Appearance Urine pH (4.5-8.0) Ur Specific [place] (1.000-1.035) Urine Protein (Negative) Urine Glucose (UA) (Negative) g/dL Urine Ketones (NEGATIVE) Urine Occult Blood (Negative) Urine Nitrate (Negative) Urine Bilirubin (NEGATIVE) Urine Urobilinogen (0.2) E.U./dL Ur Leukocyte Esterase (NEGATIVE) Urine RBC (0-5/HPF) Urine WBC (0-5/HPF) Ur Squamous Epith Cells (0-5/HPF) Ur Transition Epith Cell (0-5/HPF) Urine Bacteria (None) Ur Culture Indicated? Chlamy pneumoniae PCR (Not Detect) Adenovirus (PCR) (Not Detect) B.parapertussis DNA PCR (Not Detect) Coronavirus OC43 (PCR) (Not Detect) Coronavirus HKU1 (PCR) (Not Detect) Coronavirus 229E (PCR) (Not Detect) COVID-19 PCR (Not Detect) Coronavirus NL63 (PCR) (Not Detect) Human Metapneumovir PCR (Not Detect) Influenza Type A (PCR) (Not Detect) Influenza Type B (PCR) (Not Detect) M. pneumoniae (PCR) (Not Detect) Parainfluenza 1 (PCR) (Not Detect) Parainfluenza 2 (PCR) (Not Detect) Parainfluenza 3 (PCR) (Not Detect) Parainfluenza 4 (PCR) (Not Detect) RSV (PCR) (Not Detect) Entero/Rhino (PCR) (Not Detect) 10/30/19 10/30/19 10/30/19 Range/Units 10:45 10:45 11:10 WBC (4.5-11.0) X10^3/uL RBC (4.0-5.2) X10^6/uL Hgb (12.0-16.0) g/dL Hct (36-46) % MCV (80-100) fL MCH (26-34) PG MCHC (30-36) % RDW (11.6-14.8) % Plt Count (150-400) X10^3/uL Neut % (Auto) (50-75) % Lymph % (Auto) (25-40) % Edgar % (Auto) (3-14) % Eos % (Auto) (2-4) % Baso % (Auto) (0-2) % Neut # (Auto) (8091-3046) /uL Lymph # (Auto) (6052-6365) /uL Edgar # (Auto) (0-900) /uL Eos # (Auto) (0-450) /uL Baso # (Auto) (0-100) /uL ESR (0-20) MM/HR D-Dimer (<230) ng/mL ABG pH (7.35-7.45) ABG pCO2 (35-45) mmHg ABG pO2 (80-100) mmHg ABG HCO3 (22-26) mmol/L ABG Total CO2 (21-31) mmol/L ABG O2 Saturation (95-100) % ABG Base Excess (-2-2) mmol/L FiO2 Sodium (137-145) mmol/L Potassium (3.4-5.1) mmol/L Chloride (98-107) mmol/L Carbon Dioxide (22-32) mmol/L BUN (7-17) mg/dL Creatinine (0.52-1.04) mg/dL Estimated GFR (>60) mL/min BUN/Creatinine Ratio (6-22) Glucose (80-110) mg/dL Lactate (0.7-2.1) mmol/L Calcium (8.4-10.2) mg/dL Total Bilirubin (0.2-1.3) mg/dL AST (14-36) IU/L ALT (<35) IU/L Alkaline Phosphatase (38-126) U/L Lactate Dehydrogenase 983 H (313-618) U/L Total Creatine Kinase 90 (30-135) U/L CK-MB (CK-2) TNP CK-MB (CK-2) Rel Index TNP Troponin I < 0.012 (0.01-0.034) ng/mL C-Reactive Protein 13.8 H (<1.0) mg/dL NT-Pro-B Natriuret Pep 1030 H (<450) pg/mL Total Protein (6.3-8.2) g/dL Albumin (3.5-5.0) g/dL Globulin (1.7-4.1) g/dL Albumin/Globulin Ratio (1.0-2.8) Procalcitonin (<0.5) ng/mL Urine Color Yellow Urine Appearance Clear Urine pH 7.0 (4.5-8.0) Ur Specific [place] <=1.005 (1.000-1.035) Urine Protein Negative (Negative) Urine Glucose (UA) 2+ H (Negative) g/dL Urine Ketones Trace H (NEGATIVE) Urine Occult Blood Negative (Negative) Urine Nitrate Negative (Negative) Urine Bilirubin Negative (NEGATIVE) Urine Urobilinogen 0.2 (0.2) E.U./dL Ur Leukocyte Esterase Negative (NEGATIVE) Urine RBC None seen (0-5/HPF) Urine WBC None seen (0-5/HPF) Ur Squamous Epith Cells 0-1 /hpf (0-5/HPF) Ur Transition Epith Cell 0-1/hpf (0-5/HPF) Urine Bacteria None seen (None) Ur Culture Indicated? Cult not indicated Chlamy pneumoniae PCR (Not Detect) Adenovirus (PCR) (Not Detect) B.parapertussis DNA PCR (Not Detect) Coronavirus OC43 (PCR) (Not Detect) Coronavirus HKU1 (PCR) (Not Detect) Coronavirus 229E (PCR) (Not Detect) COVID-19 PCR (Not Detect) Coronavirus NL63 (PCR) (Not Detect) Human Metapneumovir PCR (Not Detect) Influenza Type A (PCR) (Not Detect) Influenza Type B (PCR) (Not Detect) M. pneumoniae (PCR) (Not Detect) Parainfluenza 1 (PCR) (Not Detect) Parainfluenza 2 (PCR) (Not Detect) Parainfluenza 3 (PCR) (Not Detect) Parainfluenza 4 (PCR) (Not Detect) RSV (PCR) (Not Detect) Entero/Rhino (PCR) (Not Detect) 10/30/19 10/30/19 10/30/19 Range/Units 11:27 12:10 12:10 WBC (4.5-11.0) X10^3/uL RBC (4.0-5.2) X10^6/uL Hgb (12.0-16.0) g/dL Hct (36-46) % MCV (80-100) fL MCH (26-34) PG MCHC (30-36) % RDW (11.6-14.8) % Plt Count (150-400) X10^3/uL Neut % (Auto) (50-75) % Lymph % (Auto) (25-40) % Edgar % (Auto) (3-14) % Eos % (Auto) (2-4) % Baso % (Auto) (0-2) % Neut # (Auto) (6104-2701) /uL Lymph # (Auto) (5203-6051) /uL Edgar # (Auto) (0-900) /uL Eos # (Auto) (0-450) /uL Baso # (Auto) (0-100) /uL ESR (0-20) MM/HR D-Dimer (<230) ng/mL ABG pH 7.48 H (7.35-7.45) ABG pCO2 25.9 L (35-45) mmHg ABG pO2 67 L (80-100) mmHg ABG HCO3 19 L (22-26) mmol/L ABG Total CO2 20 L (21-31) mmol/L ABG O2 Saturation 95 (95-100) % ABG Base Excess -4.0 L (-2-2) mmol/L FiO2 65 Sodium (137-145) mmol/L Potassium (3.4-5.1) mmol/L Chloride (98-107) mmol/L Carbon Dioxide (22-32) mmol/L BUN (7-17) mg/dL Creatinine (0.52-1.04) mg/dL Estimated GFR (>60) mL/min BUN/Creatinine Ratio (6-22) Glucose (80-110) mg/dL Lactate (0.7-2.1) mmol/L Calcium (8.4-10.2) mg/dL Total Bilirubin (0.2-1.3) mg/dL AST (14-36) IU/L ALT (<35) IU/L Alkaline Phosphatase (38-126) U/L Lactate Dehydrogenase (313-618) U/L Total Creatine Kinase (30-135) U/L CK-MB (CK-2) CK-MB (CK-2) Rel Index Troponin I (0.01-0.034) ng/mL C-Reactive Protein (<1.0) mg/dL NT-Pro-B Natriuret Pep (<450) pg/mL Total Protein (6.3-8.2) g/dL Albumin (3.5-5.0) g/dL Globulin (1.7-4.1) g/dL Albumin/Globulin Ratio (1.0-2.8) Procalcitonin (<0.5) ng/mL Urine Color Urine Appearance Urine pH (4.5-8.0) Ur Specific [place] (1.000-1.035) Urine Protein (Negative) Urine Glucose (UA) (Negative) g/dL Urine Ketones (NEGATIVE) Urine Occult Blood (Negative) Urine Nitrate (Negative) Urine Bilirubin (NEGATIVE) Urine Urobilinogen (0.2) E.U./dL Ur Leukocyte Esterase (NEGATIVE) Urine RBC (0-5/HPF) Urine WBC (0-5/HPF) Ur Squamous Epith Cells (0-5/HPF) Ur Transition Epith Cell (0-5/HPF) Urine Bacteria (None) Ur Culture Indicated? Chlamy pneumoniae PCR Not detected (Not Detect) Adenovirus (PCR) Not detected (Not Detect) B.parapertussis DNA PCR Not detected (Not Detect) Coronavirus OC43 (PCR) Not detected (Not Detect) Coronavirus HKU1 (PCR) Not detected (Not Detect) Coronavirus 229E (PCR) Not detected (Not Detect) COVID-19 PCR Positive A (Not Detect) Coronavirus NL63 (PCR) Not detected (Not Detect) Human Metapneumovir PCR Not detected (Not Detect) Influenza Type A (PCR) Not detected (Not Detect) Influenza Type B (PCR) Not detected (Not Detect) M. pneumoniae (PCR) Not detected (Not Detect) Parainfluenza 1 (PCR) Not detected (Not Detect) Parainfluenza 2 (PCR) Not detected (Not Detect) Parainfluenza 3 (PCR) Not detected (Not Detect) Parainfluenza 4 (PCR) Not detected (Not Detect) RSV (PCR) Not detected (Not Detect) Entero/Rhino (PCR) Not detected (Not Detect) 10/30/19 10/30/19 Range/Units 14:42 16:24 WBC (4.5-11.0) X10^3/uL RBC (4.0-5.2) X10^6/uL Hgb (12.0-16.0) g/dL Hct (36-46) % MCV (80-100) fL MCH (26-34) PG MCHC (30-36) % RDW (11.6-14.8) % Plt Count (150-400) X10^3/uL Neut % (Auto) (50-75) % Lymph % (Auto) (25-40) % Edgar % (Auto) (3-14) % Eos % (Auto) (2-4) % Baso % (Auto) (0-2) % Neut # (Auto) (6366-4334) /uL Lymph # (Auto) (4558-4293) /uL Edgar # (Auto) (0-900) /uL Eos # (Auto) (0-450) /uL Baso # (Auto) (0-100) /uL ESR (0-20) MM/HR D-Dimer (<230) ng/mL ABG pH 7.34 L 7.38 (7.35-7.45) ABG pCO2 32.2 L 32.2 L (35-45) mmHg ABG pO2 47 L* 94 (80-100) mmHg ABG HCO3 17 L 19 L (22-26) mmol/L ABG Total CO2 18 L 20 L (21-31) mmol/L ABG O2 Saturation 81 L* 97 (95-100) % ABG Base Excess -8.0 L -6.0 L (-2-2) mmol/L FiO2 100 100 Sodium (137-145) mmol/L Potassium (3.4-5.1) mmol/L Chloride (98-107) mmol/L Carbon Dioxide (22-32) mmol/L BUN (7-17) mg/dL Creatinine (0.52-1.04) mg/dL Estimated GFR (>60) mL/min BUN/Creatinine Ratio (6-22) Glucose (80-110) mg/dL Lactate (0.7-2.1) mmol/L Calcium (8.4-10.2) mg/dL Total Bilirubin (0.2-1.3) mg/dL AST (14-36) IU/L ALT (<35) IU/L Alkaline Phosphatase (38-126) U/L Lactate Dehydrogenase (313-618) U/L Total Creatine Kinase (30-135) U/L CK-MB (CK-2) CK-MB (CK-2) Rel Index Troponin I (0.01-0.034) ng/mL C-Reactive Protein (<1.0) mg/dL NT-Pro-B Natriuret Pep (<450) pg/mL Total Protein (6.3-8.2) g/dL Albumin (3.5-5.0) g/dL Globulin (1.7-4.1) g/dL Albumin/Globulin Ratio (1.0-2.8) Procalcitonin (<0.5) ng/mL Urine Color Urine Appearance Urine pH (4.5-8.0) Ur Specific [place] (1.000-1.035) Urine Protein (Negative) Urine Glucose (UA) (Negative) g/dL Urine Ketones (NEGATIVE) Urine Occult Blood (Negative) Urine Nitrate (Negative) Urine Bilirubin (NEGATIVE) Urine Urobilinogen (0.2) E.U./dL Ur Leukocyte Esterase (NEGATIVE) Urine RBC (0-5/HPF) Urine WBC (0-5/HPF) Ur Squamous Epith Cells (0-5/HPF) Ur Transition Epith Cell (0-5/HPF) Urine Bacteria (None) Ur Culture Indicated? Chlamy pneumoniae PCR (Not Detect) Adenovirus (PCR) (Not Detect) B.parapertussis DNA PCR (Not Detect) Coronavirus OC43 (PCR) (Not Detect) Coronavirus HKU1 (PCR) (Not Detect) Coronavirus 229E (PCR) (Not Detect) COVID-19 PCR (Not Detect) Coronavirus NL63 (PCR) (Not Detect) Human Metapneumovir PCR (Not Detect) Influenza Type A (PCR) (Not Detect) Influenza Type B (PCR) (Not Detect) M. pneumoniae (PCR) (Not Detect) Parainfluenza 1 (PCR) (Not Detect) Parainfluenza 2 (PCR) (Not Detect) Parainfluenza 3 (PCR) (Not Detect) Parainfluenza 4 (PCR) (Not Detect) RSV (PCR) (Not Detect) Entero/Rhino (PCR) (Not Detect) Discharge Plan Departure Patient Disposition: [facility] Clinical Impression: Hypoxic, Cough in adult, Tachypnea, Sinus tachycardia, COVID-19 Bilateral pneumonia Qualifiers: Pneumonia type: due to unspecified organism Lung location: unspecified part of lung Qualified Code(s): J18.9 - Pneumonia, unspecified organism Sepsis Qualifiers: Sepsis type: sepsis due to unspecified organism Sepsis acute organ dysfunction status: unspecified Qualified Code(s): A41.9 - Sepsis, unspecified organism Hypotension Qualifiers: Hypotension type: other hypotension type Qualified Code(s): I95.89 - Other hypotension Discharge Date/Time: 10/30/19 22:16
[2019-10-30] MEDS: SODIUM CHLORIDE 0.9% 1,000 ML 2000 ML IV (10:55)
[2019-10-30] MEDS: AZITHROMYCIN 500 MG in DEXTROSE 5% IN WATER 250 ML IV (10:55)
[2019-10-30] MEDS: CEFTRIAXONE 1 GM/50 ML FROZ.PIGGY IV (10:56)
[2019-10-30 11:08] LABS: Add Manual Diff / Slide Review NO; Basophils Absolute Auto 0 /uL (0-100); Basophils Percent Auto 0.1 % (0-2); Eosinophils Absolute Auto 0 /uL (0-450); Hematocrit 29.6 % (36-46); Hemoglobin 10.2 g/dL (12.0-16.0); Lymphocytes Absolute Auto 200 /uL (1100-4500); Lymphocytes Percent Auto 1.4 % (25-40); Mean Corpuscular HGB Conc 34.3 % (30-36); Mean Corpuscular Hemoglobin 28.3 PG (26-34); Mean Corpuscular Volume 82.6 fL (80-100); Monocytes Absolute Auto 200 /uL (0-900); Monocytes Percent Auto 1.3 % (3-14); Neutrophils Absolute Auto 13800 /uL (1500-7000); Neutrophils Percent Auto 97.2 % (50-75); Platelet Count 277 X10^3/uL (150-400); Red Blood Cell Count 3.59 X10^6/uL (4.0-5.2); Red Cell Distribution Width 13.5 % (11.6-14.8); White Blood Cell Count 14.2 X10^3/uL (4.5-11.0)
[2019-10-30 11:21] LABS: Lactate (Lactic Acid) 1.4 mmol/L (0.7-2.1)
[2019-10-30 11:23] LABS: Alanine Aminotransferase 22 IU/L (<35); Albumin Globulin Ratio 1.1 (1.0-2.8); Alkaline Phosphatase 81 U/L (38-126); Aspartate Aminotransferase 55 IU/L (14-36); Bilirubin Total 0.6 mg/dL (0.2-1.3); Blood Urea Nitrogen 12 mg/dL (7-17); Calcium 8.9 mg/dL (8.4-10.2); Carbon Dioxide 21 mmol/L (22-32); Chloride 92 mmol/L (98-107); Creatine Kinase 90 U/L (30-135); Estimated Glomerular Filt Rate > 60.0 mL/min (>60); Globulin 3.7 g/dL (1.7-4.1); Glucose 255 mg/dL (80-110); HEMOLYSIS < 15 (0-50); Potassium 4.2 mmol/L (3.4-5.1); Sodium 125 mmol/L (137-145); Total Protein 7.7 g/dL (6.3-8.2)
[2019-10-30 11:24] LABS: Erythrocyte Sedimentation Rate 106 MM/HR (0-20)
[2019-10-30 11:27] LABS: Lactate Dehydrogenase 983 U/L (313-618)
[2019-10-30 11:35] LABS: D Dimer 998 ng/mL (<230); NT-proBNP (BNP-Adult 18+) 1030 pg/mL (<450); Troponin I < 0.012 ng/mL (0.01-0.034)
[2019-10-30 11:39] LABS: HCO3 ABG 19 mmol/L (22-26); Oxygen Saturation ABG 95 % (95-100); PCO2 ABG 25.9 mmHg (35-45); PO2 ABG 67 mmHg (80-100); TCO2 ABG 20 mmol/L (21-31); pH ABG 7.48 (7.35-7.45)
[2019-10-30 11:40] LABS: Fractionated Inspired Oxygen 65
[2019-10-30 11:40] LABS: C-Reactive Protein Quant 13.8 mg/dL (<1.0)
[2019-10-30 11:51] LABS: Procalcitonin 0.19 ng/mL (<0.5)
--- NOTE | 2019-10-30 12:16 | DI.CT.S_ITS ---
PROCEDURE: CT ANGIO CHEST INDICATIONS: hypoxia, elevated d-dimer, tachycardia r/o PE TECHNIQUE: After the administration of intravenous contrast, 2 mm thick sections acquired from the pulmonary apices to the posterior costophrenic angles. 3-dimensional maximum intensity projection (MIP) coronal and sagittal reformats were then acquired through the thorax. For radiation dose reduction, the following was used: automated exposure control, adjustment of mA and/or kV according to patient size. COMPARISON: None. FINDINGS: Image quality: Excellent. Pulmonary arteries: Pulmonary arteries are normal in size, and demonstrate no intraluminal filling defects to suggest central pulmonary embolism. Lungs and pleura: Patchy groundglass opacities and consolidation noted in the lungs bilaterally with peripheral predominance concerning for multilobar pneumonia No pleural effusions or pneumothorax. Central and peripheral airways are patent. Mediastinum: Large anterior mediastinal cyst/fluid collection. Heart size is normal, without pericardial effusion. Atherosclerotic calcifications are noted in the aorta, great vessels and the coronary vasculature.Mildly enlarged bilateral hilar and mediastinal lymph nodes are noted likely reactive. Thoracic aorta is normal in caliber and enhancement. Esophagus is normal in caliber, without hiatal hernia. Bones and chest wall: No suspicious bony lesions. Ribs and thoracic spine appear intact throughout. Spine degenerative disc disease and facet arthropathy. Flowing osteophytes noted in the mid thoracic spine compatible with diffuse idiopathic skeletal hyperostosis. Thyroid gland is within normal limits. No axillary or supraclavicular adenopathy. Abdomen: Visualized upper abdominal solid organs appear normal in the early arterial phase of enhancement. IMPRESSION: 1. No pulmonary embolus. 2. Patchy, bilateral lung groundglass opacities and consolidation with peripheral predominance concerning for multilobar pneumonia less related to COVID-19. 3. Atherosclerosis including the coronary vasculature. Dictated by: Joycelyn Beckham MD, PhD on 10/30/2019 at 13:13 Approved by: Joycelyn Beckham MD, PhD on 10/30/2019 at 13:18
--- NOTE | 2019-10-30 12:20 | PC.NURSE ---
upon arrival to ER, pt appeared in NAD, pt's oxygen sats with a good pleth were 71 percent on Room air. placed patient on oxygen at 4lnc and titrated to 6LNC. oxygen saturation was only 82 percent on the 6LNC. placed on 100 percent NRB. sats went up to 95percent on the 100%NRB. Dr. Cee at bedside. pt moved to negative pressure isolation 15 mins after arrival to ER. attempted to titrate NRB off and place on 6LNC. pt sats decreased to 84percent. placed pt back on a NRB. respiratory switched pt to a high flow cannula/15l and pt is maintaining her oxygen saturations at 94 percent.
--- NOTE | 2019-10-30 12:39 | PC.NURSE ---
Jaret rooney [phone]
[2019-10-30 12:40] LABS: Bacteria Urine None Seen; RBC Urine None Seen (0-5/HPF); WBC Urine None Seen (0-5/HPF)
[2019-10-30 12:42] LABS: Appearance Urine UA CLEAR; Bilirubin Urine UA NEGATIVE (NEGATIVE); Color Urine UA YELLOW; Glucose Urine UA 2+ g/dL (Negative); Ketones Urine UA TRACE (NEGATIVE); Leukocyte Esterase Urine UA NEGATIVE (NEGATIVE); Nitrite Urine UA NEGATIVE (Negative); Occult Blood Urine UA NEGATIVE (Negative); Protein Urine UA NEGATIVE (Negative); Specific Gravity Urine UA <=1.005 (1.000-1.035); Urobilinogen Urine UA 0.2 E.U./dL (0.2)
[2019-10-30 12:49] LABS: Culture Indicated Urine Cult Not Indicated; Squamous Epithelial Cell Urine 0-1 /HPF (0-5/HPF); Transitional Epi Cells Urine 0-1/HPF (0-5/HPF)
[2019-10-30 13:35] LABS: Adenovirus Not Detected (Not Detect); Bordetella pertussis Not Detected (Not Detect); Chlamydophila pneumoniae Not Detected (Not Detect); Coronavirus 229E Not Detected (Not Detect); Coronavirus HKU1 Not Detected (Not Detect); Coronavirus NL 63 Not Detected (Not Detect); Coronavirus OC43 Not Detected (Not Detect); Human Metapneumovirus Not Detected (Not Detect); Human Rhinovirus/Enterovirus Not Detected (Not Detect); Influenza A Not Detected (Not Detect); Influenza B Not Detected (Not Detect); Mycoplasma pneumoniae Not Detected (Not Detect); Parainfluenza Virus 1 Not Detected (Not Detect); Parainfluenza Virus 2 Not Detected (Not Detect); Parainfluenza Virus 3 Not Detected (Not Detect); Parainfluenza Virus 4 Not Detected (Not Detect); Respiratory Syncytial Virus Not Detected (Not Detect)
[2019-10-30] MEDS: SODIUM CHLORIDE 0.9% 1,000 ML 1000 ML IV (13:41)
--- NOTE | 2019-10-30 13:48 | PC.NURSE ---
pt went to ct. after arrival from ct pt sats decreased to 84percent on 15liter high flow. placed and addition 15l nrb on patient. Dr. Cee aware. rt at bedside. sats are not going abouve 90 . hr. 135. pt in distress. preparing for intubation.
[2019-10-30] MEDS: ETOMIDATE 2 MG/ML 10 ML VIAL 10 MG IV (14:05)
[2019-10-30] MEDS: SUCCINYLCHOLINE 100 MG/5 ML INJ IV (14:06)
[2019-10-30] MEDS: propofoL 1,000 MG/100 ML VIAL 1.587 MG IV (14:15)
--- NOTE | 2019-10-30 14:40 | DI.RAD.S_ITS ---
PROCEDURE: XR CHEST 1V INDICATIONS: intubated: check tube placement TECHNIQUE: One view of the chest was acquired. COMPARISON: [facility], CT, CT ANGIO CHEST, 10/30/2019, 12:41. [facility], CR, XR CHEST 1V, 10/30/2019, 10:58. FINDINGS: Surgical changes and devices: An endotracheal tube is seen, with the tip 1.5 cm above the estefany. Lungs and pleura: Low lung volumes are noted. This causes a crowded appearance to the lung markings and limits evaluation. Interstitial type infiltrates are seen on both sides, which appear worse within the left lower lung compared to the prior. On this supine examination, no large pneumothorax or large pleural effusions are seen. Mediastinum: The cardiac contours are within normal limits. The aorta demonstrates calcification and tortuosity. Bones and chest wall: Relatively prominent bony degenerative changes are seen. No suspicious bony lesions. Overlying soft tissues appear unremarkable. IMPRESSION: The tip of the endotracheal tube is seen 1.5 cm above the estefany. (It is reported that Dr. Cee adjusted the tip of the endotracheal tube following this image.) Low lung volumes with worsening interstitial type infiltrates. Dictated by: Cedric Blas M.D. on 10/30/2019 at 14:05 Approved by: Cedric Blas M.D. on 10/30/2019 at 14:08
[2019-10-30] MEDS: fentaNYL 100 MCG/2 ML INJ IV ×2 (14:53→15:40)
[2019-10-30 15:01] LABS: PCO2 ABG 32.2 mmHg (35-45); pH ABG 7.34 (7.35-7.45)
[2019-10-30 15:02] LABS: HCO3 ABG 17 mmol/L (22-26); Oxygen Saturation ABG 81 % (95-100); TCO2 ABG 18 mmol/L (21-31)
[2019-10-30 15:03] LABS: Fractionated Inspired Oxygen 100
[2019-10-30] MEDS: MIDAZOLAM 2 MG/2 ML VIAL 4 MG (15:24)
[2019-10-30] MEDS: VECURONIUM 20 MG in SODIUM CHLORIDE 0.9% 100 ML 12.696 ML IV (15:34)
[2019-10-30] MEDS: MIDAZOLAM 50 MG in DEXTROSE 5% IN WATER 250 ML 5.502 ML IV (15:34)
[2019-10-30] MEDS: NOREPINEPHRINE 4 MG in DEXTROSE 5% IN WATER 250 ML 30.48 ML IV (15:44)
--- NOTE | 2019-10-30 16:06 | DI.RAD.S_ITS ---
PROCEDURE: XR CHEST 1V INDICATIONS: left subclavian IV started, catheter placement TECHNIQUE: One view of the chest was acquired. COMPARISON: [facility], CT, CT ANGIO CHEST, 10/30/2019, 12:41. [facility], CR, XR CHEST 1V, 10/30/2019, 10:58. [facility], CR, XR CHEST 1V, 10/30/2019, 14:56. FINDINGS: Surgical changes and devices: An endotracheal tube is seen, with the tip 4 cm above the estefany. A left-sided central line is seen, the tip overlying the mid aspect of the superior vena cava, 4 cm above the cavoatrial junction. Lungs and pleura: Diffuse interstitial infiltrates are seen. On this supine examination, no large pneumothorax or large pleural effusions are seen. Mediastinum: The cardiac contours are within normal limits. The aorta demonstrates calcification and tortuosity. Bones and chest wall: No suspicious bony lesions. Age-appropriate bony degenerative changes are seen. Overlying soft tissues appear unremarkable. IMPRESSION: The tip of the left-sided central line overlies the mid aspect of the superior vena cava. The tip of endotracheal tube is seen 4 cm above the estefany. Diffuse interstitial infiltrates. Dictated by: Cedric Blas M.D. on 10/30/2019 at 15:26 Approved by: Cedric Blas M.D. on 10/30/2019 at 15:28
[2019-10-30 16:32] LABS: HCO3 ABG 19 mmol/L (22-26); Oxygen Saturation ABG 97 % (95-100); PCO2 ABG 32.2 mmHg (35-45); PO2 ABG 94 mmHg (80-100); TCO2 ABG 20 mmol/L (21-31); pH ABG 7.38 (7.35-7.45)
[2019-10-30 16:33] LABS: Fractionated Inspired Oxygen 100
[2019-10-30] MEDS: FUROSEMIDE 40 MG/4 ML VIAL IV (16:45)
[2019-10-30] MEDS: SODIUM CHLORIDE 0.9% 1,000 ML 100 ML IV (16:49)
--- NOTE | 2019-10-30 17:09 | PC.NURSE ---
pt continues to decompensate. 1:1 care continues. pt is on a Versed gtt, Norepinephrine gtt, ivf, vecouronium gtt. pt neede to be intubated at 1407, pt is on 100percent fio2, tv 380, peepo 12, see respiratory flow sheet. dr. Cee aware of all of the vital signs, urinary output, assisted Dr. Cee with a triple lumen cvp placement left cw. excellent blood return. tritrated gtts and given bolus of meds per Dr. Cee orders. pt was fighting/ bucking the ventilator when she was intubated.
--- NOTE | 2019-10-30 18:07 | PC.NURSE ---
pt continues to require critical care .
--- NOTE | 2019-10-30 18:12 | PC.NURSE ---
pt has soft restraints since she was pulling at invasive lines, ett, needed for her protection.Dr. dewitt aware
--- NOTE | 2019-10-30 18:20 | PC.NURSE ---
pt's ETco2 has been ranging between 31-37.
--- NOTE | 2019-10-30 18:47 | PC.NURSE ---
pt is paralyzed and sedated.
--- NOTE | 2019-10-30 18:50 | PC.NURSE ---
ETT is at 22 cm at the lip, size 7.0, AC on vent. TV 380, RR 20, 100percent Fio2, peep +12, Etco2 37, suctioned when ETT placed for light pink , frothy secretions in small amounts. Dr. dewitt aware. lasix ordered and pt is diuresing.
--- NOTE | 2019-10-30 19:08 | PC.NURSE ---
pt has a language barrier. has been communicating with her son. i spoke with daughter in law and son as well.
[2019-10-30 19:36] LABS: PO2 ABG 47 mmHg (80-100)
--- NOTE | 2019-10-30 21:02 | PC.NURSE ---
two nurses-Amber and myself attempted ogt/ ngt placement. unsuccessful attempts. tube would coil and not advanced. janeth suctioned patient multiple times in mouth for bloody secretions throughout shift. titrating medications down. pt is tolerating well.
--- NOTE | 2019-10-30 22:05 | PC.NURSE ---
pt has been critical care the entire ER visit. 2:1 RN for hours. unable to do Train of [address] Cee was made aware. pt remains sedated and paralyzed. report to victoria Guillory and MIKALA baptiste at given.
--- NOTE | 2019-10-30 22:20 | PC.NURSE ---
pt transferred to [facility] via airlift Vec. gtt infusing at 0.8 mcg/kg/min, Versed 5.3ml/hr or 0.02 mg kg hr. normal saline at 100cc/hr/. norepinephrine at 4 mcg/min
[2019-10-31 03:27] LABS: COVID19 Sendout Positive (Not Detect)
== END 2019-10-30 22:16 | disposition short-term general hospital (02) ==
PROVIDERS: Emergency Medicine; Emergency Provider Emergency Medicine
DX: U07.1 COVID-19 (principal); J12.89 Other viral pneumonia; A41.9 Sepsis, unspecified organism; R00.0 Tachycardia, unspecified; R06.82 Tachypnea, not elsewhere classified
CPT/HCPCS: 31500; 36415; 36600; 51701; 71045; 71275; 80053; 81001; 82550; 82805; 83605; 83615; 83880; 84145; 84484; 85025; 85379; 85651; 86140; 87040; 87633; 87635; 93005; 94002; 94770; 94799; 96361; 96365; 96366; 96367; 96368; 96375; 99285; 99291; 99292; J0330; J1940; J2250; J2704; J3010